=== PATIENT | male | born 1995 | race Caucasian/White ===

== ENCOUNTER 2017-01-06 10:33 | Emergency (ER) | payer OTHER ==
--- NOTE | 2017-01-06 12:01 | EDM.PDOC ---
ED HPI GENERAL MEDICAL PROBLEM - General Chief Complaint: Headache Stated Complaint: HEADACHE AND LT EYE DROOPING Time Seen by Provider: 01/06/17 11:41 Source of Information: Reports: Patient History Limitations: Reports: No Limitations - History of Present Illness INITIAL COMMENTS - FREE TEXT/NARRATIVE: Patient is a 21-year-old male presents ED complaining of left-sided headache with retro-orbital pain and photophobia. Patient states he was woke up in the middle and night this past with severe pain behind his left eye that radiated to the top of his head and into his neck. States the pain to the top of his scalp was like a burning sensation. The following morning he notices prescription left and was drastically weaker than his right. All symptoms have persisted over the course of the weekend. Today he complains of left-sided head discomfort that is abnormal. Mother states when she saw the patient on Thursday there was some abnormalities to the left side of his face. She states he looked droopy. He had no slurred speech. He had no difficulty swallowing at that time. He was seen by a lathe setup operator with concerns of worsening macular degenerative disease to his left eye. Eye exam was essentially normal. Patient states he does have a history of migraines. Normally with onset he has photophobia, hyperacusis, retro-orbital discomfort, with nausea/vomiting. Again symptoms he is currently experiencing are not following similar symptomatology. They're concerned that he may had a bleed or stroke. There's been no recent trauma noted. He denies any hypercoagulable states. Patient has no previous past medical history and currently taking no medications. Does not smoke and only utilizes alcohol on occasion. Denies any recreational drug use. - Related Data Allergies Allergy/AdvReac Type Severity Reaction Status Date / Time Cats Allergy Itching Uncoded 01/06/17 11:05 seaonal Allergy Itching Uncoded 01/06/17 11:04 Home Meds: Home Meds Rizatriptan Benzoate [Maxalt] 5 mg PO Q2HR PRN #2 tablet 01/06/17 [Rx] Past Medical History HEENT History: Reports: Macular Degeneration - Past Surgical History HEENT Surgical History: Reports: Adenoidectomy, Tonsillectomy Musculoskeletal Surgical History: Reports: Other (See Below) Social & Family History - Family History Family Medical History: Noncontributory Neurological: Reports: CVA Other Neurological Family History: grandma and grandpa - Tobacco Use Smoking Status *Q: Never Smoker Second Hand Smoke Exposure: No - Caffeine Use Caffeine Use: Reports: Coffee, Soda Other Caffeine Use: moderate use - Alcohol Use Days Per Week of Alcohol Use: 5 Number of Drinks Per Day: 2 Total Drinks Per Week: 10 - Recreational Drug Use Recreational Drug Use: No ED ROS GENERAL - Review of Systems Review Of Systems: See Below Constitutional: Denies: Fever, Chills, Malaise, Fatigue, Decreased Appetite HEENT: Reports: Eye Pain. Denies: Ear Pain, Vision Change (Left) Respiratory: Denies: Shortness of Breath, Cough, Sputum Cardiovascular: Denies: Chest Pain, Dyspnea on Exertion, Lightheadedness, Palpitations, Syncope GI/Abdominal: Denies: Abdominal Pain, Constipation, Diarrhea, Nausea, Vomiting Musculoskeletal: Reports: Neck Pain (With onset). Denies: Shoulder Pain, Arm Pain ( has since resolved), Back Pain Skin: Reports: No Symptoms Neurological: Reports: Headache (Left side of his head, retro-orbital). Denies : Confusion, Dizziness, Numbness, Pre-Existing Deficit, Syncope, Tingling, Trouble Speaking, Difficulty Walking, Change in Speech, Gait Disturbance - Physical Exam Exam: See Below Exam Limited By: No Limitations General Appearance: Alert, WD/WN, No Apparent Distress Eye Exam: Bilateral Eye: EOMI, PERRL Ears: Hearing Grossly Normal Nose: Normal Inspection Throat/Mouth: Normal Inspection, Normal Oropharynx, Normal Voice, No Airway Compromise Head Exam: Atraumatic, Normocephalic Neck: Normal Inspection, Supple, Non-Tender, Full Range of Motion. No: Lymphadenopathy (L), Lymphadenopathy (R) Respiratory/Chest: No Respiratory Distress, Lungs Clear, Normal Breath Sounds, No Accessory Muscle Use, Chest Non-Tender Cardiovascular: Normal Peripheral Pulses, Regular Rate, Rhythm GI/Abdominal: Normal Bowel Sounds, Soft, Non-Tender, No Organomegaly, No Distention Neuro Exam (Abbreviated): Alert, Oriented, CN II-XII Intact, Normal Cognition, No Motor/Sensory Deficits, Other (Cerebellar function intact: Finger-nose, heel- to-downing, rapid alternating movements. No facial droop, slurred speech, or weakness/sensory motor deficits to the upper and lower extremity.) Back Exam: Normal Inspection, Full Range of Motion Extremities: Normal Inspection, Normal Range of Motion, Non-Tender, No Pedal Edema, Normal Capillary Refill Psychiatric: Normal Affect, Normal Mood Skin Exam: Warm, Dry, Normal Color Course - Vital Signs Last Recorded V/S: Last Vital Signs Temp 98.0 F 01/06/17 10:43 Pulse 70 01/06/17 13:55 Resp 14 01/06/17 10:43 BP 109/66 01/06/17 13:55 Pulse Ox 99 01/06/17 13:55 - Orders/Labs/Meds Meds: Medications Discontinued Medications Generic Name Dose Route Start Last Admin Trade Name Cooperq PRN Reason Stop Dose Admin Diphenhydramine HCl 50 mg 01/06/17 12:47 01/06/17 13:04 Benadryl PO 01/06/17 12:48 50 mg ONETIME ONE Administration Haloperidol Lactate 5 mg 01/06/17 12:46 01/06/17 13:07 Haldol IM 01/06/17 12:47 5 mg ONETIME ONE Administration Ketorolac Tromethamine 60 mg 01/06/17 12:47 01/06/17 13:05 Toradol IM 01/06/17 12:48 60 mg ONETIME ONE Administration Ondansetron HCl 4 mg 01/06/17 12:47 01/06/17 13:04 Zofran Odt PO 01/06/17 12:48 4 mg ONETIME ONE Administration - Re-Assessments/Exams Free Text/Narrative Re-Assessment/Exam: Believe headache is associated with migraine headache (atypical/complex). He has known history of migraines with no history of CVA. Denies recent trauma to the head, alcohol use, or precipitation factors/illnesses. Ordered CT of the head due to unresolved headache with different symptomatology. Believe this related to a migraine headache. CT is negative for any intracranial hemorrhage. Will go ahead with migraine treatment. Order benadryl 50mg PO, toradol 60mg IM, zofran 4mg odt, and haldol 5mg IM Medications have been administered. He is requesting to be discharged home. Departure - Departure Time of Disposition: 13:16 Disposition: Home, Self-Care 01 Condition: Good Clinical Impression: Migraine Headache Qualifiers: Headache type: unspecified Headache chronicity pattern: acute headache Intractability: not intractable Qualified Code(s): R51 - Headache - Discharge Information Prescriptions: Rizatriptan Benzoate [Maxalt] 5 mg PO Q2HR PRN #2 tablet PRN Reason: Headache Instructions: Migraine Headache Referrals: Clarice Magallanes DO [Primary Care Provider] - Forms: ED Department Discharge Additional Instructions: As discussed do believe recent events is associated with a migraine headache. CT of the head did not reveal any abnormal findings. Physical examination did not elicit any concerns as well. Highly unlikely patient had a stroke/TIA. Patient has no significant past medical history that would put him at risk for it. Thus will have you follow-up with your PCP January 12 at 9:00. I have sent you home with a medication called Maxalt which is used to treat migraine headaches. Take 5 mg by mouth with onset of headache and can repeat in 2 hours. Push the fluids. Utilize Tylenol and ibuprofen in alternating fashion as well for discomfort. Refrain from any activities that cause worsening symptoms. Suggest going home this evening to rest. No alcohol use. Return to ED for any new or worsening symptoms.
[2017-01-06] MEDS ORDERED: Haloperidol Lactate 5 MG/ML SDV IM ONE (12:46)
[2017-01-06] MEDS ORDERED: Ketorolac 60 MG/2 ML SDV IM ONE (12:47)
[2017-01-06] MEDS ORDERED: diphenhydrAMINE 50 MG Cap PO ONE (12:47)
[2017-01-06] MEDS ORDERED: Ondansetron 4 MG Tab.DIS PO ONE (12:47)
--- NOTE | 2017-01-06 12:49 | CT ---
Head CT Technique: Multiple axial sections through the brain were obtained. Intravenous contrast was not utilized. Comparison: Previous MRI brain of 11/10/11 is available. Findings: Ventricles along with basal cisterns and sulci over the convexities are within normal limits for the patient's age. No abnormal parenchymal densities are seen. No evidence of intracranial hemorrhage. No midline shift or mass effect is seen. Bone window settings were reviewed which shows the visualized sinuses to appear clear. No acute calvarial abnormality is identified. Impression: 1. No acute intracranial abnormality is identified. Diagnostic code #1
[2017-01-06 14:17] VITALS: BP 109/66
== END 2017-01-06 14:00 | disposition home or self-care (01) ==
LOC: JD.ED 10:33
DX: G43.909 Migraine, unspecified, not intractable, without status migrainosus (principal); Z98.890 Other specified postprocedural states
CPT/HCPCS: 70450; 96372; 99284; A9270; J1630; J1885; 99283